=== PATIENT | female | born 1960 | race Caucasian/White ===

== ENCOUNTER 2021-09-24 10:17 | Inpatient (IN) | payer SELFPAY ==
[2021-09-24 11:09] LABS: #Basophils 0.1 thou/uL (0.0-0.2); #Eosinphils 0.1 thou/uL (0.0-0.7); #Lymphocytes 1.9 thou/uL (1.20-3.40); #Monocytes 0.6 thou/uL (0.11-0.59); #Neutrophils 5.7 thou/uL (1.40-6.50); %Basophils 0.9 % (0.0-1.0); %Eosinophils 1.6 % (0.0-10.0); %Lymphocytes 22.2 % (21.0-51.0); %Monocytes 7.1 % (0.0-10.0); %Neutrophils 68.2 % (42.0-75.0); Hemoglobin 16.8 g/dL (12.0-16.0); Mean Corpuscular HGB CONC 30.7 g/dL (32.0-36.0); Mean Corpuscular Hemoglobin 30.5 pg (27.0-31.0); Mean Corpuscular Volume 99.2 fL (78.0-98.0); Mean Platelet Volume 7.3 fL (7.4-10.4); Platelet Count 233 thou/uL (130-400); RBC Distribution Width 15.9 % (11.5-14.5); White Blood Cell (WBC) Count 8.4 thou/uL (4.8-10.8)
[2021-09-24 11:28] LABS: ALT (SGPT) 21 U/L (8-55); AST (SGOT) 24 U/L (5-34); Albumin 3.7 g/dL (3.4-4.8); Alkaline Phosphatase 100 U/L (40-110); Anion Gap 18 mmol/L (10-20); BUN (Urea Nitrogen) 29 mg/dL (9.8-20.1); Bilirubin, Total 0.4 mg/dL (0.2-1.2); Calc. Creatinine Clearance 0 mL/min (70-130); Calcium 9.1 mg/dL (7.8-10.44); Carbon Dioxide 24 mmol/L (23-31); Chloride 91 mmol/L (98-107); Globulin 4.1 g/dL (2.4-3.5); Glucose 96 mg/dL (80-115); Potassium 5.6 mmol/L (3.5-5.1); Protein, Total 7.8 g/dL (5.8-8.1); Sodium 127 mmol/L (136-145)
[2021-09-24 11:47] LABS: PTT 54.8 sec (22.9-36.1); Prothrombin Time 51.9 sec (12.0-14.7)
[2021-09-24 11:48] LABS: D-Dimer Test 0.44 *mcg/mL (0.27-0.43)
[2021-09-24 11:50] LABS: INR-International Normal Ratio 5.6
[2021-09-24 13:05] LABS: Actual Bicarbonate (HCO3a) 24.7 mEq/L (22-28); Analyzer IN Cardio ER; Base Excess (BEa) -2.7 mEq/L (-2.0 to +3.0); CO2 Tension 52.5 mmHg (35.0-45.0); Calcium, Ionized (arterial) 1.11 mmol/L (1.12-1.30); Carboxyhemoglobin (COHb) 6.4 gm% (0.0-3.0); Hemoglobin (Hb) 17.3 g/dL (12.0-16.0); Potassium - ABG Lab 5.57 mmol/L (3.70-5.30); pH, Arterial 7.29 (7.35-7.45)
[2021-09-24 13:08] LABS: ALV-art Gradient 105.735 mmHg (0-20); O2 Tension (PaO2), arterial 56.8 mmHg (> 80.0); Puncture Site RRA
[2021-09-24] MEDS ORDERED: methylPREDNISolone Sod Succ/PF 125 MG/2 ML VIAL ONE (13:33)
[2021-09-24] MEDS ORDERED: Dextrose 5% in Water 1,000 ML IV PRN (17:24)
[2021-09-24] MEDS ORDERED: HumaLOG 300 UNITS/3 ML VIAL SC PRN (17:24)
[2021-09-24] MEDS ORDERED: Dextrose 50% Abboject 50 ML SYRINGE SLOW IVP PRN (17:24)
[2021-09-24] MEDS ORDERED: hydrALAZINE 20 MG/ML VIAL SLOW IVP PRN (17:24)
[2021-09-24 17:51] VITALS: BMI 35.6
[2021-09-24] MEDS: Nicotine 21 MG PATCH TD SCH (18:37)
[2021-09-24] MEDS: methylPREDNISolone Sod Succ 40 MG VIAL IVP SCH (18:37)
[2021-09-24] MEDS: Benzonatate 100 MG CAP PO PRN (18:37)
[2021-09-24] MEDS: Mometasone/Formoterol 200/5 60 PUFF INH SCH (18:55)
[2021-09-24] MEDS ORDERED: Prevnar 13-Val Conj/PF 0.5 ML SYRINGE IM ONE (20:00)
[2021-09-24] MEDS: Doxycycline 100 MG CAP PO SCH (21:06)
[2021-09-24 23:04] LABS: Creatinine, Urine 75.46 mg/dL (47-110)
[2021-09-25 00:05] LABS: SARS-CoV-2 PCR by NAA Not Detected (NotDetected)
[2021-09-25] MEDS: methylPREDNISolone Sod Succ 40 MG VIAL IVP SCH ×5 (00:08→23:16)
[2021-09-25 04:41] LABS: #Lymphocytes 0.9 thou/uL (1.20-3.40); #Monocytes 0.1 thou/uL (0.11-0.59); #Neutrophils 3.7 thou/uL (1.40-6.50); %Basophils 0.9 % (0.0-1.0); %Eosinophils 0.1 % (0.0-10.0); %Lymphocytes 18.5 % (21.0-51.0); %Monocytes 2.1 % (0.0-10.0); %Neutrophils 78.4 % (42.0-75.0); Hemoglobin 16.8 g/dL (12.0-16.0); Mean Corpuscular HGB CONC 30.9 g/dL (32.0-36.0); Mean Corpuscular Hemoglobin 30.2 pg (27.0-31.0); Mean Corpuscular Volume 97.9 fL (78.0-98.0); Mean Platelet Volume 7.2 fL (7.4-10.4); Platelet Count 232 thou/uL (130-400); Red Blood Cell (RBC) Count 5.56 mill/uL (4.20-5.40); White Blood Cell (WBC) Count 4.7 thou/uL (4.8-10.8)
[2021-09-25 05:12] LABS: Anion Gap 14 mmol/L (10-20); BUN (Urea Nitrogen) 33 mg/dL (9.8-20.1); Calc. Creatinine Clearance 48 mL/min (70-130); Calcium 9.5 mg/dL (7.8-10.44); Carbon Dioxide 28 mmol/L (23-31); Chloride 92 mmol/L (98-107); Glucose 190 mg/dL (80-115); Potassium 6.1 mmol/L (3.5-5.1); Sodium 128 mmol/L (136-145)
[2021-09-25 05:26] LABS: Free T4 (Free Thyroxine) 0.77 ng/dL (0.70-1.48); Thyroid Stimulating Hormone 0.5168 uIU/mL (0.35-4.94)
[2021-09-25] MEDS: HumaLOG 300 UNITS/3 ML VIAL SC PRN ×3 (05:56→17:19)
[2021-09-25] MEDS: Mometasone/Formoterol 200/5 60 PUFF INH SCH ×2 (07:35→19:36)
[2021-09-25] MEDS: Doxycycline 100 MG CAP PO SCH ×2 (08:25→20:14)
[2021-09-25 10:49] LABS: Prothrombin Time 61.3 sec (12.0-14.7)
[2021-09-25 11:03] LABS: INR-International Normal Ratio 6.9
[2021-09-25] MEDS: Benzonatate 100 MG CAP PO PRN (11:45)
[2021-09-25] MEDS ORDERED: Albuterol Sulfate 2.5 mg/3 ml Neb NEB SCH (11:45)
[2021-09-25] MEDS: Nicotine 21 MG PATCH TD SCH (16:37)
[2021-09-25 17:01] LABS: Actual Bicarbonate (HCO3a) 28.1 mEq/L (22-28); Base Excess (BEa) 1.2 mEq/L (-2.0 to +3.0); CO2 Tension 52.3 mmHg (35.0-45.0); Calcium, Ionized (arterial) 1.18 mmol/L (1.12-1.30); Carboxyhemoglobin (COHb) 1.8 gm% (0.0-3.0); O2 Tension (PaO2), arterial 80.4 mmHg (> 80.0); Potassium - ABG Lab 4.48 mmol/L (3.70-5.30); pH, Arterial 7.35 (7.35-7.45)
[2021-09-25 17:08] LABS: Puncture Site RRA
[2021-09-25 17:09] LABS: ALV-art Gradient 110.905 mmHg (0-20)
[2021-09-25] MEDS: Acetaminophen 325 MG TAB PO PRN (23:22)
[2021-09-26 03:47] LABS: #Basophils 0.1 thou/uL (0.0-0.2); #Lymphocytes 0.9 thou/uL (1.20-3.40); #Monocytes 0.5 thou/uL (0.11-0.59); #Neutrophils 12.1 thou/uL (1.40-6.50); %Basophils 0.5 % (0.0-1.0); %Eosinophils 0.1 % (0.0-10.0); %Lymphocytes 6.4 % (21.0-51.0); %Monocytes 3.8 % (0.0-10.0); %Neutrophils 89.1 % (42.0-75.0); Hemoglobin 16.5 g/dL (12.0-16.0); Mean Corpuscular HGB CONC 30.9 g/dL (32.0-36.0); Mean Corpuscular Hemoglobin 30.2 pg (27.0-31.0); Mean Corpuscular Volume 97.8 fL (78.0-98.0); Mean Platelet Volume 7.4 fL (7.4-10.4); Platelet Count 231 thou/uL (130-400); RBC Distribution Width 15.9 % (11.5-14.5); Red Blood Cell (RBC) Count 5.45 mill/uL (4.20-5.40); White Blood Cell (WBC) Count 13.6 thou/uL (4.8-10.8)
[2021-09-26 04:01] LABS: Prothrombin Time 50.1 sec (12.0-14.7)
[2021-09-26 04:19] LABS: Anion Gap 15 mmol/L (10-20); BUN (Urea Nitrogen) 32 mg/dL (9.8-20.1); Calc. Creatinine Clearance 78 mL/min (70-130); Calcium 9.4 mg/dL (7.8-10.44); Carbon Dioxide 27 mmol/L (23-31); Chloride 95 mmol/L (98-107); Glucose 151 mg/dL (80-115); Potassium 4.8 mmol/L (3.5-5.1); Sodium 132 mmol/L (136-145)
[2021-09-26 05:02] LABS: INR-International Normal Ratio 5.3
[2021-09-26] MEDS: methylPREDNISolone Sod Succ 40 MG VIAL IVP SCH ×4 (05:11→23:13)
[2021-09-26] MEDS: HumaLOG 300 UNITS/3 ML VIAL SC PRN (05:59)
[2021-09-26] MEDS: Mometasone/Formoterol 200/5 60 PUFF INH SCH ×2 (07:02→20:05)
[2021-09-26] MEDS: Doxycycline 100 MG CAP PO SCH ×2 (07:48→20:18)
[2021-09-26] MEDS: Nicotine 21 MG PATCH TD SCH (17:51)
[2021-09-26] MEDS: Acetaminophen 325 MG TAB PO PRN (20:18)
[2021-09-26] MEDS: Benzonatate 100 MG CAP PO PRN (20:18)
[2021-09-26] MEDS ORDERED: Atorvastatin Calcium 40 MG TAB PO SCH (21:00)
[2021-09-27 03:44] LABS: #Lymphocytes 1.1 thou/uL (1.20-3.40); #Monocytes 0.4 thou/uL (0.11-0.59); #Neutrophils 12.4 thou/uL (1.40-6.50); %Basophils 0.2 % (0.0-1.0); %Eosinophils 0.1 % (0.0-10.0); %Lymphocytes 8.2 % (21.0-51.0); %Monocytes 2.5 % (0.0-10.0); Hemoglobin 15.8 g/dL (12.0-16.0); Mean Corpuscular HGB CONC 30.2 g/dL (32.0-36.0); Mean Corpuscular Hemoglobin 29.8 pg (27.0-31.0); Mean Corpuscular Volume 98.5 fL (78.0-98.0); Mean Platelet Volume 7.2 fL (7.4-10.4); Platelet Count 229 thou/uL (130-400); RBC Distribution Width 15.7 % (11.5-14.5); Red Blood Cell (RBC) Count 5.32 mill/uL (4.20-5.40); White Blood Cell (WBC) Count 13.9 thou/uL (4.8-10.8)
[2021-09-27 03:54] LABS: Prothrombin Time 31.6 sec (12.0-14.7)
[2021-09-27 04:04] LABS: Anion Gap 12 mmol/L (10-20); BUN (Urea Nitrogen) 27 mg/dL (9.8-20.1); Calc. Creatinine Clearance 109 mL/min (70-130); Calcium 9.4 mg/dL (7.8-10.44); Carbon Dioxide 31 mmol/L (23-31); Chloride 97 mmol/L (98-107); Glucose 120 mg/dL (80-115); Potassium 4.5 mmol/L (3.5-5.1); Sodium 135 mmol/L (136-145)
[2021-09-27] MEDS: methylPREDNISolone Sod Succ 40 MG VIAL IVP SCH (05:03)
[2021-09-27] MEDS: Acetaminophen 325 MG TAB PO PRN (05:08)
[2021-09-27] MEDS ORDERED: Levothyroxine Sodium 50 MCG TAB PO SCH (06:00)
[2021-09-27] MEDS: Mometasone/Formoterol 200/5 60 PUFF INH SCH (08:06)
[2021-09-27] MEDS: Doxycycline 100 MG CAP PO SCH (08:58)
[2021-09-27] MEDS ORDERED: methylPREDNISolone Sod Succ 40 MG VIAL IVP SCH (09:00)
[2021-09-27] MEDS ORDERED: Losartan 25 MG TAB PO SCH (09:00)
[2021-09-27] MEDS ORDERED: Escitalopram Oxalate 20 mg Tablet PO SCH (09:00)
[2021-09-27 11:09] VITALS: TEMP 97.5
[2021-09-27 13:01] VITALS: BP 131/63
== END 2021-09-27 11:52 | disposition home or self-care (01) | DRG 189 ==
LOC: ERS 10:17 → 2SW 16:06 → OBSVTOIN 17:24 → IMCU/EMU 09-25 18:45
PROVIDERS: ADMIT Internal Medicine; ATTEND Hospitalist
PROC: 5A09457 Assistance with Respiratory Ventilation, 24-96 Consecutive Hours, Continuous Positive Airway Pressure (ICD-10-PCS; principal; 2021-09-25)
DX: J96.21 Acute and chronic respiratory failure with hypoxia (principal); J44.1 Chronic obstructive pulmonary disease with (acute) exacerbation; D68.51 Activated protein C resistance; N17.9 Acute kidney failure, unspecified; Z20.822 Contact with and (suspected) exposure to COVID-19; E66.9 Obesity, unspecified; F17.210 Nicotine dependence, cigarettes, uncomplicated; E78.5 Hyperlipidemia, unspecified; I11.0 Hypertensive heart disease with heart failure; I50.9 Heart failure, unspecified; E03.9 Hypothyroidism, unspecified; K21.9 Gastro-esophageal reflux disease without esophagitis; F41.9 Anxiety disorder, unspecified; J96.22 Acute and chronic respiratory failure with hypercapnia; I27.20 Pulmonary hypertension, unspecified; E87.5 Hyperkalemia; R53.81 Other malaise; E11.9 Type 2 diabetes mellitus without complications; Z99.81 Dependence on supplemental oxygen; Z86.718 Personal history of other venous thrombosis and embolism; Z86.711 Personal history of pulmonary embolism; Z83.3 Family history of diabetes mellitus; Z80.9 Family history of malignant neoplasm, unspecified; Z79.899 Other long term (current) drug therapy; Z79.890 Hormone replacement therapy; Z79.01 Long term (current) use of anticoagulants; Z79.84 Long term (current) use of oral hypoglycemic drugs; Z68.36 Body mass index [BMI] 36.0-36.9, adult; Z90.721 Acquired absence of ovaries, unilateral; Z71.6 Tobacco abuse counseling
CPT/HCPCS: 36415; 36416; 36600; 71045; 76770; 80048; 80053; 82570; 82805; 83880; 83930; 83935; 84145; 84300; 84439; 84443; 84484; 85025; 85379; 85610; 85730; 93005; 93306; 94640; 94660; 94760; 96374; G0378; J1815; J2920; J2930; J7611; J7620; U0003; U0005

== ENCOUNTER 2022-04-15 11:35 | Outpatient (CLI) | payer OTHER | END 2022-04-15 11:36 | disposition home or self-care (01) | LOC: BICMAMMO 11:35 | PROVIDERS: ATTEND Registered Nurse Community Health | DX: Z12.31 Encounter for screening mammogram for malignant neoplasm of breast (principal) | CPT/HCPCS: 77063; 77067 ==

== ENCOUNTER 2022-10-18 10:12 | Outpatient (CLI) | payer OTHER | END 2022-10-18 10:13 | disposition home or self-care (01) | LOC: BICCT 10:12 | PROVIDERS: ATTEND Internal Medicine | DX: Z12.2 Encounter for screening for malignant neoplasm of respiratory organs (principal); J44.9 Chronic obstructive pulmonary disease, unspecified; Z87.891 Personal history of nicotine dependence | CPT/HCPCS: 71271 ==

== ENCOUNTER 2023-04-29 08:19 | Outpatient (CLI) | payer OTHER | END 2023-04-29 08:20 | disposition home or self-care (01) | LOC: BICMAMMO 08:19 | PROVIDERS: ATTEND Registered Nurse Hospice | DX: Z12.31 Encounter for screening mammogram for malignant neoplasm of breast (principal) | CPT/HCPCS: 77063; 77067 ==

== ENCOUNTER 2023-10-21 12:19 | Outpatient (CLI) | payer MEDICARE, OTHER | END 2023-10-21 12:20 | disposition home or self-care (01) | LOC: BICCT 12:19 | PROVIDERS: ATTEND Internal Medicine | DX: Z12.2 Encounter for screening for malignant neoplasm of respiratory organs (principal); Z87.891 Personal history of nicotine dependence; J44.9 Chronic obstructive pulmonary disease, unspecified | CPT/HCPCS: 71271 ==

== ENCOUNTER 2023-12-30 10:55 | Outpatient (CLI) | payer MEDICARE ==
[2023-12-30 12:26] LABS: #Basophils 0.04 10x3/uL (0.0-0.2); %Basophils 0.4 % (0.0-1.0); %Eosinophils 0.5 % (0.0-10.0); %Lymphocytes 13.1 % (21.0-51.0); %Monocytes 4.7 % (0.0-10.0); %Neutrophils 80.8 % (42.0-75.0); Hematocrit 45.7 % (36.0-47.0); Hemoglobin 15.3 g/dL (12.0-16.0); Mean Corpuscular HGB CONC 33.5 g/dL (32.0-36.0); Mean Corpuscular Volume 101.6 fL (78.0-98.0); Mean Platelet Volume 10.5 fL (7.4-10.4); Platelet Count 248 10x3/uL (130-400); RBC Distribution Width 14.3 % (11.5-14.5)
[2023-12-30 12:50] LABS: Anion Gap 15 mmol/L (10-20); BUN (Urea Nitrogen) 11 mg/dL (9.8-20.1); Calc. Creatinine Clearance 0 mL/min (70-130); Calcium 9.7 mg/dL (7.8-10.44); Carbon Dioxide 24 mmol/L (23-31); Chloride 99 mmol/L (98-107); Estimated GFR 74; Glucose 96 mg/dL (80-115); Potassium 5.4 mmol/L (3.5-5.1); Sodium 133 mmol/L (136-145)
== END 2023-12-30 10:56 | disposition home or self-care (01) ==
LOC: LABBT 10:55
PROVIDERS: ATTEND Internal Medicine Cardiovascular Disease
DX: Z01.818 Encounter for other preprocedural examination (principal); Z98.61 Coronary angioplasty status
CPT/HCPCS: 80048; 85025; 93005; 93010

== ENCOUNTER 2024-05-19 13:34 | Outpatient (CLI) | payer MEDICARE | END 2024-05-19 13:35 | disposition home or self-care (01) | LOC: BICRAD 13:34 | PROVIDERS: ATTEND Nurse Practitioner Family | DX: M54.50 Low back pain, unspecified (principal); S32.018A Other fracture of first lumbar vertebra, initial encounter for closed fracture; X58.XXXA Exposure to other specified factors, initial encounter | CPT/HCPCS: 72100 ==

== ENCOUNTER 2025-02-16 10:33 | Outpatient (CLI) | payer MEDICARE | END 2025-02-16 10:34 | disposition home or self-care (01) | LOC: BICCT 10:33 | PROVIDERS: ATTEND Internal Medicine | DX: Z12.2 Encounter for screening for malignant neoplasm of respiratory organs (principal); J44.9 Chronic obstructive pulmonary disease, unspecified; Z72.0 Tobacco use | CPT/HCPCS: 71271 ==